=== PATIENT | male | born 1980 | race Caucasian/White ===

== ENCOUNTER 2017-07-26 14:48 | Inpatient (IN) | payer SELFPAY ==
[~2017-07-26] VITALS: Ht 188 cm; Wt 92.2 kg
[2017-07-26 15:49] LABS: Basophils # (auto) 0.1 uL; Basophils % (auto) 0.9 % (0.0-2.0); Eosinophils # (auto) 0 uL; Lymphocytes # (auto) 1.6 uL; Mean Corpuscular Hemoglobin 39.1 pg (28.0-32.0); Nucleated Red Blood Cells % 0.1 %; Platelet Count (auto) 44 10^3/uL (140-450); Red Cell Distribution Width 14.8 % (11.8-14.3)
[2017-07-26 15:51] LABS: Eosinophils % (auto) 0.2 % (0.0-7.0); Hematocrit 37.8 % (41.0-53.0); Hemoglobin 13.5 g/dL (13.5-17.5); Lymphocytes % (auto) 19.9 % (10.0-50.0); Mean Corpuscular Hgb Conc. 35.6 g/dL (32.0-36.0); Mean Corpuscular Volume 109.9 fL (80.0-100.0); Mean Platelet Volume 10.5 fL (6.9-10.8); Monocytes # (auto) 0.9 uL; Monocytes % (auto) 10.4 % (0.0-12.0); Neutrophils # (auto) 5.6 uL; Neutrophils % (auto) 68.6 % (37.0-80.0); White Blood Cell 8.1 10^3/uL (4.4-10.8)
[2017-07-26] MEDS ORDERED: SODIUM CHLORIDE 0.9% 1,000 ML IVB ONE (16:11)
[2017-07-26 16:14] LABS: Albumin 2.4 g/dL (3.4-5.0); BUN/Creatinine Ratio 8.3; Bilirubin, Total 4.1 mg/dL (0.2-1.0); Calcium 7.5 mg/dL (8.5-10.1); Potassium 3.6 mmol/L (3.5-5.1); Total Protein 7.9 g/dL (6.4-8.2)
[2017-07-26] MEDS ORDERED: PANTOPRAZOLE 40 MG/10 ML VIAL IV ONE (16:15)
[2017-07-26] MEDS ORDERED: SUCRALFATE 1 GM/10 ML ORAL SUSP PO ONE (16:15)
[2017-07-26] MEDS ORDERED: ONDANSETRON HCL 4 MG/2 ML VIAL IV ONE ×2 (16:15→21:00)
[2017-07-26] MEDS ORDERED: HYDROmorphone HCL 2 MG/ML VL IV ONE (16:15)
[2017-07-26] MEDS ORDERED: metroNIDAZOLE 500MG/100ML 100 ML IV ONE (16:30)
[2017-07-26] MEDS ORDERED: LEVOFLOXACIN 500MG 100 ML IV ONE (16:30)
[2017-07-26 16:39] LABS: Amylase 78 U/L (25-115); Magnesium 1.5 mg/dL (1.6-2.6)
[2017-07-26 17:07] LABS: Lactic Acid w/Reflex 5.5 mmol/L (0.4-2.0)
[2017-07-26 17:08] LABS: REFLEX LACTIC ACID YES OR NO YES
[2017-07-26] MEDS ORDERED: SODIUM CHLORIDE 0.9% 1,000 ML IV ONE (17:45)
[2017-07-26] MEDS ORDERED: LACTULOSE 20Gm/30ML SOLN PO ONE (18:00)
[2017-07-26] MEDS ORDERED: PANTOPRAZOLE 80 MG in SODIUM CHL 0.9% 60 ML IV ONE ×4 (18:30)
[2017-07-26] MEDS ORDERED: OCTREOTIDE ACETATE 100 MCG in SODIUM CHL 0.9% 50 ML IV ONE (18:30)
[2017-07-26] MEDS ORDERED: OCTREOTIDE ACETATE 500 MCG in SODIUM CHL 0.9% 99 ML IV SCH (18:45)
[2017-07-26] MEDS: OCTREOTIDE ACETATE 500 MCG in SODIUM CHL 0.9% 99 ML IV SCH (18:45)
[2017-07-26 18:46] LABS: Lactic Acid w/Reflex 7.2 mmol/L (0.4-2.0)
[2017-07-26 19:03] LABS: INR 1.52 (0.9-1.15); Prothrombin Time 16.6 sec (9.37-12.3)
[2017-07-26 19:22] LABS: REFLEX LACTIC ACID YES OR NO YES
[2017-07-26] MEDS ORDERED: ONDANSETRON HCL 4 MG/2 ML VIAL ONE (20:55)
[2017-07-26] MEDS ORDERED: MORPHINE SULFATE 10 MG/ML INJ 1ML SDV IV PRN (21:45)
[2017-07-26] MEDS ORDERED: PROMETHAZINE HCL 25 MG/ML 1ML IV PRN (21:45)
[2017-07-26] MEDS ORDERED: LORazepam 2MG/ML-1ML VIAL IV ONE (21:45)
[2017-07-26] MEDS: metroNIDAZOLE 500MG/100ML 100 ML IV SCH (22:00)
[2017-07-26] MEDS: THIAMINE INJ 100 MG, MULTIPLE VITAMIN 10 ML, FOLIC ACID 1 MG, MAGNESIUM SULF SDV 50% 8 ... IV SCH ×5 (23:15)
[2017-07-27 02:26] VITALS: BP 116/62
[2017-07-27 02:56] VITALS: BP 116/72
[2017-07-27 03:00] VITALS: BP_SYST 109; BP_DIAS 65; BP_DIAS 68
[2017-07-27] MEDS: LORazepam 2MG/ML-1ML VIAL IV PRN ×4 (03:00→18:54)
[2017-07-27 03:31] VITALS: BP 112/65
[2017-07-27] MEDS: OCTREOTIDE ACETATE 500 MCG in SODIUM CHL 0.9% 99 ML IV SCH ×2 (05:15→14:52)
[2017-07-27] MEDS: metroNIDAZOLE 500MG/100ML 100 ML IV SCH ×3 (06:08→22:05)
[2017-07-27 06:16] LABS: Basophils # (auto) 0 uL; Basophils % (auto) 0.5 % (0.0-2.0); Eosinophils # (auto) 0 uL; Hematocrit 24.3 % (41.0-53.0); Lymphocytes # (auto) 0.9 uL; Monocytes # (auto) 0.5 uL; Neutrophils # (auto) 3.2 uL; Nucleated Red Blood Cells % 0.1 %
[2017-07-27 06:19] LABS: Hemoglobin 8.6 g/dL (13.5-17.5); Lymphocytes % (auto) 20.2 % (10.0-50.0); Mean Corpuscular Hemoglobin 39.8 pg (28.0-32.0); Mean Corpuscular Hgb Conc. 35.3 g/dL (32.0-36.0); Mean Corpuscular Volume 112.5 fL (80.0-100.0); Mean Platelet Volume 10.7 fL (6.9-10.8); Monocytes % (auto) 10.4 % (0.0-12.0); Neutrophils % (auto) 68.9 % (37.0-80.0); Red Cell Distribution Width 14.9 % (11.8-14.3); White Blood Cell 4.6 10^3/uL (4.4-10.8)
[2017-07-27 06:44] LABS: Platelet Count (auto) 27 10^3/uL (140-450)
[2017-07-27 07:08] LABS: Albumin 2.1 g/dL (3.4-5.0); BUN/Creatinine Ratio 14.1; Bilirubin, Total 4.3 mg/dL (0.2-1.0); Calcium 6.8 mg/dL (8.5-10.1); Potassium 3.8 mmol/L (3.5-5.1)
[2017-07-27 08:23] LABS: Macrocytosis Slight; Platelet Estimate Decreased
[2017-07-27 08:24] LABS: Large Platelets FEW; Tear Drop Cells FEW
[2017-07-27] MEDS ORDERED: THIAMINE HCL 100 MG/ML 2ML VIAL IV SCH (10:00)
[2017-07-27] MEDS: SODIUM CHLORIDE 0.9% 1,000 ML IV SCH (18:12)
[2017-07-27 18:51] LABS: Basophils # (auto) 0 uL; Eosinophils # (auto) 0 uL; Eosinophils % (auto) 0.9 % (0.0-7.0); Monocytes # (auto) 0.5 uL
[2017-07-27 18:54] LABS: Hematocrit 24.1 % (41.0-53.0); Hemoglobin 8.6 g/dL (13.5-17.5); Lymphocytes # (auto) 1.4 uL; Lymphocytes % (auto) 30.5 % (10.0-50.0); Mean Corpuscular Hemoglobin 40.6 pg (28.0-32.0); Mean Corpuscular Hgb Conc. 35.8 g/dL (32.0-36.0); Mean Corpuscular Volume 113.5 fL (80.0-100.0); Mean Platelet Volume 11.2 fL (6.9-10.8); Monocytes % (auto) 10.7 % (0.0-12.0); Neutrophils # (auto) 2.6 uL; Neutrophils % (auto) 56.9 % (37.0-80.0); Nucleated Red Blood Cells % 0.5 %; Platelet Count (auto) 24 10^3/uL (140-450); Red Cell Distribution Width 14.5 % (11.8-14.3); White Blood Cell 4.6 10^3/uL (4.4-10.8)
[2017-07-27] MEDS ORDERED: PHYTONADIONE (VIT K)10 MG/ML 1ML VIAL SUBCUT ONE (19:45)
[2017-07-27 20:04] LABS: Urine RBC None Seen /hpf (0 - 3)
[2017-07-27 20:08] LABS: Albumin 2.1 g/dL (3.4-5.0); BUN/Creatinine Ratio 18.2; Calcium 6.9 mg/dL (8.5-10.1); Potassium 3.7 mmol/L (3.5-5.1); Total Protein 6.2 g/dL (6.4-8.2)
[2017-07-27 20:12] LABS: INR 1.59 (0.9-1.15); Prothrombin Time 17.4 sec (9.37-12.3)
[2017-07-27 20:20] LABS: Urine Bilirubin 1+ (Negative); Urine Blood Negative /uL (Negative); Urine Color Brown (Yellow); Urine Glucose Normal (Normal); Urine Ketone Negative (Negative); Urine Nitrite Negative (Negative); Urine Squamous Epithelial Cell FEW /hpf (<5); Urine Urobilinogen Normal (Negative); Urine pH 8.5 (5.0-8.0)
[2017-07-27] MEDS: LEVOFLOXACIN 500MG 100 ML IV SCH (22:05)
[2017-07-27] MEDS ORDERED: MVI in SODIUM CHLORIDE 0.9% 1,010 ML ONE (23:19)
[2017-07-27] MEDS: THIAMINE INJ 100 MG, MULTIPLE VITAMIN 10 ML, FOLIC ACID 1 MG, MAGNESIUM SULF SDV 50% 8 ... IV SCH ×5 (23:20)
[2017-07-27] MEDS ORDERED: THIAMINE HCL 100 MG/ML 2ML VIAL ONE (23:20)
[2017-07-28] MEDS: OCTREOTIDE ACETATE 500 MCG in SODIUM CHL 0.9% 99 ML IV SCH ×3 (01:04→20:51)
[2017-07-28] MEDS: SODIUM CHLORIDE 0.9% 1,000 ML IV SCH ×2 (04:01→14:02)
[2017-07-28] MEDS: metroNIDAZOLE 500MG/100ML 100 ML IV SCH ×3 (06:17→22:48)
[2017-07-28 07:15] LABS: Basophils # (auto) 0.1 uL; Eosinophils # (auto) 0 uL; Lymphocytes # (auto) 1.6 uL; Monocytes # (auto) 0.4 uL
[2017-07-28 07:22] LABS: Hematocrit 26.8 % (41.0-53.0); Hemoglobin 9.5 g/dL (13.5-17.5); Mean Corpuscular Hemoglobin 40.1 pg (28.0-32.0); Mean Corpuscular Hgb Conc. 35.3 g/dL (32.0-36.0); Mean Corpuscular Volume 113.7 fL (80.0-100.0); Mean Platelet Volume 11.4 fL (6.9-10.8); Monocytes % (auto) 7.9 % (0.0-12.0); Neutrophils % (auto) 59.1 % (37.0-80.0); Nucleated Red Blood Cells % 0.2 %; Platelet Count (auto) 32 10^3/uL (140-450); Red Cell Distribution Width 14.5 % (11.8-14.3); White Blood Cell 5.1 10^3/uL (4.4-10.8)
[2017-07-28 07:23] LABS: INR 1.63 (0.9-1.15); Prothrombin Time 17.8 sec (9.37-12.3)
[2017-07-28 08:10] LABS: Albumin 2.4 g/dL (3.4-5.0); BUN/Creatinine Ratio 15.5; Calcium 7.1 mg/dL (8.5-10.1); Potassium 3.7 mmol/L (3.5-5.1)
[2017-07-28 08:22] LABS: Large Platelets FEW; Platelet Estimate Markedly Decreased
[2017-07-28 08:23] LABS: Macrocytosis Marked
[2017-07-28] MEDS: PANTOPRAZOLE 40 MG/10 ML VIAL IV SCH (10:19)
[2017-07-28] MEDS ORDERED: LACTULOSE 20Gm/30ML SOLN PO ONE (12:15)
[2017-07-28] MEDS ORDERED: LACTULOSE 20Gm/30ML SOLN ONE (12:16)
[2017-07-28] MEDS: chlordiazePOXIDE HCL 5 MG CAP PO SCH ×3 (12:25→22:48)
[2017-07-28] MEDS: LACTULOSE 20Gm/30ML SOLN PO SCH (18:00)
[2017-07-28] MEDS ORDERED: LORazepam 2MG/ML-1ML VIAL IV ONE (20:30)
[2017-07-28] MEDS: LEVOFLOXACIN 500MG 100 ML IV SCH (22:00)
[2017-07-29] VITALS (7 sets, daily range): BP systolic 104–130; BP diastolic 61–86
[2017-07-29] MEDS: LACTULOSE 20Gm/30ML SOLN PO SCH ×5 (00:24→22:05)
[2017-07-29] MEDS ORDERED: MVI in SODIUM CHLORIDE 0.9% 1,010 ML ONE (00:36)
[2017-07-29] MEDS ORDERED: THIAMINE HCL 100 MG/ML 2ML VIAL ONE (00:38)
[2017-07-29] MEDS ORDERED: MAGNESIUM SULFATE 1GM/100ML 100 ML IV ONE (00:40)
[2017-07-29] MEDS ORDERED: OCTREOTIDE ACETATE 500 MCG/ML VL ONE (00:53)
[2017-07-29] MEDS: OCTREOTIDE ACETATE 500 MCG in SODIUM CHL 0.9% 99 ML IV SCH ×2 (01:04→17:24)
[2017-07-29] MEDS: THIAMINE INJ 100 MG, MULTIPLE VITAMIN 10 ML, FOLIC ACID 1 MG, MAGNESIUM SULF SDV 50% 8 ... IV SCH ×10 (01:05→23:06)
[2017-07-29] MEDS: chlordiazePOXIDE HCL 5 MG CAP PO SCH ×4 (05:47→22:05)
[2017-07-29] MEDS: metroNIDAZOLE 500MG/100ML 100 ML IV SCH ×3 (05:47→22:05)
[2017-07-29] MEDS: LEVOFLOXACIN 500MG 100 ML IV SCH (06:45)
[2017-07-29 07:21] LABS: Basophils # (auto) 0 uL; Basophils % (auto) 0.9 % (0.0-2.0); Eosinophils # (auto) 0.1 uL; Hemoglobin 8.2 g/dL (13.5-17.5); Neutrophils # (auto) 2.3 uL; White Blood Cell 4.4 10^3/uL (4.4-10.8)
[2017-07-29 07:24] LABS: Eosinophils % (auto) 2.8 % (0.0-7.0); Hematocrit 23.6 % (41.0-53.0); Lymphocytes # (auto) 1.6 uL; Lymphocytes % (auto) 35.3 % (10.0-50.0); Mean Corpuscular Hemoglobin 39.6 pg (28.0-32.0); Mean Corpuscular Hgb Conc. 34.8 g/dL (32.0-36.0); Mean Corpuscular Volume 113.8 fL (80.0-100.0); Mean Platelet Volume 11.6 fL (6.9-10.8); Monocytes # (auto) 0.4 uL; Monocytes % (auto) 9.8 % (0.0-12.0); Neutrophils % (auto) 51.2 % (37.0-80.0); Nucleated Red Blood Cells % 0.1 %; Platelet Count (auto) 34 10^3/uL (140-450); Red Cell Distribution Width 14.2 % (11.8-14.3)
[2017-07-29 07:39] LABS: INR 1.64 (0.9-1.15); Partial Thromboplastin Time 32.4 sec (22.64-33.71)
[2017-07-29 07:53] LABS: Albumin 2.1 g/dL (3.4-5.0); Bilirubin, Total 4.6 mg/dL (0.2-1.0); Calcium 7.2 mg/dL (8.5-10.1); Potassium 3.6 mmol/L (3.5-5.1); Total Protein 6.3 g/dL (6.4-8.2)
[2017-07-29] MEDS: PANTOPRAZOLE 40 MG/10 ML VIAL IV SCH ×2 (09:53→22:05)
[2017-07-29] MEDS: SODIUM CHLORIDE 0.9% 1,000 ML IV SCH ×3 (09:53→20:39)
[2017-07-29] MEDS: LORazepam 2MG/ML-1ML VIAL IV PRN (09:53)
[2017-07-29] MEDS ORDERED: OCTREOTIDE ACETATE 100 MCG in SODIUM CHL 0.9% 50 ML IV ONE (15:15)
[2017-07-29] MEDS ORDERED: NICOTINE 14 MG/24HR TOPICAL PATCH TD ONE (15:45)
[2017-07-30] MEDS: OCTREOTIDE ACETATE 500 MCG in SODIUM CHL 0.9% 99 ML IV SCH ×4 (02:58→21:30)
[2017-07-30] MEDS: SODIUM CHLORIDE 0.9% 1,000 ML IV SCH ×2 (04:16→16:00)
[2017-07-30 05:00] VITALS: BP 127/82
[2017-07-30 05:05] VITALS: BP 105/71
[2017-07-30 05:30] VITALS: BP 113/70
[2017-07-30] MEDS: metroNIDAZOLE 500MG/100ML 100 ML IV SCH ×3 (05:30→22:08)
[2017-07-30] MEDS: chlordiazePOXIDE HCL 5 MG CAP PO SCH ×4 (05:30→22:08)
[2017-07-30] MEDS: LACTULOSE 20Gm/30ML SOLN PO SCH ×3 (05:30→18:00)
[2017-07-30] MEDS: LEVOFLOXACIN 500MG 100 ML IV SCH (06:18)
[2017-07-30 08:00] VITALS: BP 121/80
[2017-07-30 08:38] LABS: Basophils # (auto) 0 uL; Eosinophils # (auto) 0.1 uL; Hematocrit 24.3 % (41.0-53.0); Hemoglobin 8.4 g/dL (13.5-17.5); Lymphocytes # (auto) 1.4 uL; Mean Platelet Volume 10.2 fL (6.9-10.8); Monocytes # (auto) 0.4 uL; White Blood Cell 4.1 10^3/uL (4.4-10.8)
[2017-07-30 08:40] LABS: Basophils % (auto) 0.9 % (0.0-2.0); Lymphocytes % (auto) 35.1 % (10.0-50.0); Mean Corpuscular Hemoglobin 39.4 pg (28.0-32.0); Mean Corpuscular Hgb Conc. 34.6 g/dL (32.0-36.0); Mean Corpuscular Volume 113.8 fL (80.0-100.0); Monocytes % (auto) 10.6 % (0.0-12.0); Neutrophils % (auto) 50.4 % (37.0-80.0); Nucleated Red Blood Cells % 0.1 %; Platelet Count (auto) 55 10^3/uL (140-450)
[2017-07-30 09:00] VITALS: BP 121/80
[2017-07-30] MEDS ORDERED: SODIUM CHLORIDE LOCK 10 ML ONE (09:01)
[2017-07-30] MEDS ORDERED: LIDOCAINE VISCOUS 2% 15ML UD ONE (09:01)
[2017-07-30] MEDS ORDERED: diphenhdrAMINE HCL 50 MG/1 ML VL ONE (09:02)
[2017-07-30 09:27] LABS: Macrocytosis Moderate; Platelet Estimate Decreased
[2017-07-30 09:28] LABS: Polychromasia Slight
[2017-07-30] MEDS: PANTOPRAZOLE 40 MG/10 ML VIAL IV SCH ×2 (11:45→22:08)
[2017-07-30] MEDS: LORazepam 2MG/ML-1ML VIAL IV PRN ×2 (11:46→22:08)
[2017-07-30] MEDS: NICOTINE 14 MG/24HR TOPICAL PATCH TD SCH (11:47)
[2017-07-30] MEDS: fentaNYL CITRATE 100 MCG/2 ML VL ONE ×3 (13:32→13:39)
[2017-07-30] MEDS: MIDAZOLAM HCL 5 MG/ML-1ML VIAL ONE ×3 (13:32→13:39)
[2017-07-30] MEDS ORDERED: OCTREOTIDE ACETATE 100 MCG in SODIUM CHL 0.9% 50 ML IV ONE (14:00)
[2017-07-30 22:00] VITALS: BP 112/71
[2017-07-31] MEDS ORDERED: MVI in SODIUM CHLORIDE 0.9% 1,010 ML ONE (00:08)
[2017-07-31] MEDS ORDERED: THIAMINE HCL 100 MG/ML 2ML VIAL ONE (00:08)
[2017-07-31] MEDS ORDERED: MAGNESIUM SULFATE 1GM/100ML 100 ML IV ONE (00:13)
[2017-07-31] MEDS: THIAMINE INJ 100 MG, MULTIPLE VITAMIN 10 ML, FOLIC ACID 1 MG, MAGNESIUM SULF SDV 50% 8 ... IV SCH ×10 (01:10→22:02)
[2017-07-31] MEDS: SODIUM CHLORIDE 0.9% 1,000 ML IV SCH ×3 (02:00→21:08)
[2017-07-31] MEDS: OCTREOTIDE ACETATE 500 MCG in SODIUM CHL 0.9% 99 ML IV SCH ×7 (02:10→22:16)
[2017-07-31] MEDS: metroNIDAZOLE 500MG/100ML 100 ML IV SCH ×3 (05:03→21:07)
[2017-07-31 05:16] VITALS: BP_SYST 104; BP_SYST 137; BP_DIAS 71; BP_DIAS 73
[2017-07-31] MEDS: LACTULOSE 20Gm/30ML SOLN PO SCH ×5 (06:00→23:23)
[2017-07-31] MEDS: chlordiazePOXIDE HCL 5 MG CAP PO SCH ×4 (06:00→21:07)
[2017-07-31] MEDS: LEVOFLOXACIN 500MG 100 ML IV SCH (06:04)
[2017-07-31 07:34] LABS: Basophils # (auto) 0 uL; Eosinophils # (auto) 0.1 uL; Eosinophils % (auto) 2.6 % (0.0-7.0); Hematocrit 27.2 % (41.0-53.0); Hemoglobin 9.3 g/dL (13.5-17.5); Lymphocytes # (auto) 1.3 uL; Lymphocytes % (auto) 31.9 % (10.0-50.0); Mean Corpuscular Hemoglobin 38.7 pg (28.0-32.0); Mean Corpuscular Hgb Conc. 34.1 g/dL (32.0-36.0); Mean Corpuscular Volume 113.8 fL (80.0-100.0); Mean Platelet Volume 10.6 fL (6.9-10.8); Monocytes # (auto) 0.5 uL; Monocytes % (auto) 13.7 % (0.0-12.0); Neutrophils % (auto) 50.8 % (37.0-80.0); Nucleated Red Blood Cells % 0.1 %; Platelet Count (auto) 60 10^3/uL (140-450); Red Cell Distribution Width 14.2 % (11.8-14.3)
[2017-07-31] MEDS: LORazepam 2MG/ML-1ML VIAL IV PRN ×2 (08:48→22:16)
[2017-07-31 09:00] VITALS: BP 118/70
[2017-07-31] MEDS: NICOTINE 14 MG/24HR TOPICAL PATCH TD SCH (10:54)
[2017-07-31] MEDS: PANTOPRAZOLE 40 MG/10 ML VIAL IV SCH ×2 (10:54→21:07)
[2017-07-31 13:00] VITALS: BP 127/78
[2017-07-31 16:53] VITALS: BP 105/57
[2017-07-31 22:00] VITALS: BP 108/66
[2017-08-01] MEDS: OCTREOTIDE ACETATE 500 MCG in SODIUM CHL 0.9% 99 ML IV SCH (03:30)
[2017-08-01] MEDS: metroNIDAZOLE 500MG/100ML 100 ML IV SCH ×2 (05:07→14:00)
[2017-08-01] MEDS: chlordiazePOXIDE HCL 5 MG CAP PO SCH ×2 (05:08→13:07)
[2017-08-01] MEDS: LACTULOSE 20Gm/30ML SOLN PO SCH ×2 (05:13→12:00)
[2017-08-01] MEDS: LEVOFLOXACIN 500MG 100 ML IV SCH (06:12)
[2017-08-01 07:22] LABS: Hemoglobin 9.2 g/dL (13.5-17.5); White Blood Cell 4.5 10^3/uL (4.4-10.8)
[2017-08-01 07:27] LABS: Hematocrit 26.1 % (41.0-53.0); Mean Corpuscular Hemoglobin 40.6 pg (28.0-32.0); Mean Corpuscular Hgb Conc. 35.1 g/dL (32.0-36.0); Mean Corpuscular Volume 115.7 fL (80.0-100.0); Mean Platelet Volume 10.8 fL (6.9-10.8); Platelet Count (auto) 67 10^3/uL (140-450); Red Cell Distribution Width 14.5 % (11.8-14.3)
[2017-08-01 07:33] LABS: Metamyelocytes % 0; Myelocytes % 0; Promyelocytes % 0; Reactive Lymphocytes 0
[2017-08-01 07:53] LABS: Large Platelets FEW; Macrocytosis Moderate
[2017-08-01 07:54] LABS: Platelet Estimate Decrea
[2017-08-01] MEDS: SODIUM CHLORIDE 0.9% 1,000 ML IV SCH (08:00)
[2017-08-01 08:30] VITALS: BP 118/62
[2017-08-01] MEDS: LORazepam 2MG/ML-1ML VIAL IV PRN (08:47)
[2017-08-01] MEDS: PANTOPRAZOLE 40 MG/10 ML VIAL IV SCH (09:11)
[2017-08-01] MEDS: NICOTINE 14 MG/24HR TOPICAL PATCH TD SCH (09:11)
[2017-08-01] MEDS ORDERED: PANTOPRAZOLE 40 MG TAB PO SCH (10:00)
[2017-08-01 12:30] VITALS: BP 120/69
[2017-08-02] MEDS ORDERED: PANTOPRAZOLE 40 MG TAB PO SCH (10:00)
== END 2017-08-01 16:40 | disposition home or self-care (01) | DRG 369 ==
LOC: ER 14:48 → TELE 14:49 → TELE-CENTR 07-28 23:30 → TELE-WESTW 07-30 22:32
PROVIDERS: ADMIT Nurse Practitioner Family; ATTEND Internal Medicine Pulmonary Disease
PROC: 30233L1 Transfusion of Nonautologous Fresh Plasma into Peripheral Vein, Percutaneous Approach (ICD-10-PCS; principal; 2017-07-27)
PROC: 30233R1 Transfusion of Nonautologous Platelets into Peripheral Vein, Percutaneous Approach (ICD-10-PCS; 2017-07-27)
PROC: 30233K1 Transfusion of Nonautologous Frozen Plasma into Peripheral Vein, Percutaneous Approach (ICD-10-PCS; 2017-07-30)
PROC: 06L38CZ Occlusion of Esophageal Vein with Extraluminal Device, Via Natural or Artificial Opening Endoscopic (ICD-10-PCS; 2017-07-30)
DX: I85.11 Secondary esophageal varices with bleeding (principal); K92.0 Hematemesis; E44.0 Moderate protein-calorie malnutrition; D68.9 Coagulation defect, unspecified; D69.6 Thrombocytopenia, unspecified; K76.6 Portal hypertension; I48.91 Unspecified atrial fibrillation; F10.188 Alcohol abuse with other alcohol-induced disorder; E11.9 Type 2 diabetes mellitus without complications; K72.90 Hepatic failure, unspecified without coma; F10.129 Alcohol abuse with intoxication, unspecified; F12.90 Cannabis use, unspecified, uncomplicated; F17.210 Nicotine dependence, cigarettes, uncomplicated; F32.9 Major depressive disorder, single episode, unspecified; J45.909 Unspecified asthma, uncomplicated; K31.89 Other diseases of stomach and duodenum; K70.31 Alcoholic cirrhosis of liver with ascites; K76.0 Fatty (change of) liver, not elsewhere classified; Z87.11 Personal history of peptic ulcer disease; Z90.49 Acquired absence of other specified parts of digestive tract; Z68.26 Body mass index [BMI] 26.0-26.9, adult; Z81.8 Family history of other mental and behavioral disorders; Z88.0 Allergy status to penicillin
CPT/HCPCS: 36415; 71010; 74176; 80053; 80307; 80320; 81001; 82140; 82150; 82270; 83605; 83690; 83735; 84484; 85007; 85018; 85025; 85027; 85610; 85730; 86850; 86900; 86901; 87040; 87086; 93005; C9113; J1956; J2250; J2405; J3430; J3490; J7042